=== PATIENT | male | born 1980 | race Caucasian/White ===

== ENCOUNTER 2018-06-06 09:11 | Inpatient (IN) ==
[2018-06-06] MEDS ORDERED: Isovue-370 500 ML INFUS..BTL IV ONE (11:48)
[2018-06-06 13:23] LABS: Basophils # 0.1 K/mcL (0.0-0.2); Basophils % 0.4 %; Eosinophils # 0.6 K/mcL (0.0-0.6); Eosinophils % 3.7 %; Hematocrit 42.5 % (37.5-50.1); Hemoglobin 14.2 g/dL (12.9-16.9); Immature Granulocytes % 0.4 % (0-4); Lymphocytes # 2.9 K/mcL (0.6-4.6); Lymphocytes % 16.9 %; Mean Corpuscular HGB Conc 33.4 g/dL (31.6-35.5); Mean Corpuscular Hemoglobin 31.2 pg (28.0-33.3); Mean Corpuscular Volume 93.4 fL (83.0-100.0); Monocytes # 2.4 K/mcL (0.0-1.3); Neutrophils # 11.2 K/mcL (1.6-8.9); Platelet Count 437 K/mcL (140-400); Red Blood Count 4.55 M/mcL (4.19-5.50); Segmented Neutrophils % 64.6 %
--- NOTE | 2018-06-06 13:37 | Emergency Department Note ---
Disposition Clinical Impression: Cellulitis, Abscess of face Disposition: Admitted As Inpatient Condition: Fair Time of Disposition: 15:56 General Adult HPI - General Chief complaint: ED Skin/Abscess/Foreign Body Stated complaint: Abscess right cheek going down throat Time Seen by Provider: 06/06/18 11:30 - History of Present Illness Pain Scale: 5 - Related Data Home Medications Medication Instructions Recorded Confirmed Diclofenac Sodium [Voltaren] 75 mg PO BID 06/06/18 06/06/18 Lisinopril-HCTZ 20-12.5 [Prinzide 1 tab PO DAILY 06/06/18 06/06/18 20-12.5] Metformin HCl [Glucophage] 1,000 mg PO BID 06/06/18 06/06/18 Allergies Allergy/AdvReac Type Severity Reaction Status Date / Time No Known Allergies Allergy Verified 06/04/18 09:39 Past Medical History - Past Medical History Medical history: Reports: hypertension Psychiatric history: Reports: no psych history - Social History Smoking Status: Never smoker Smokeless Tobacco Status: No Alcohol use: Reports: none Drug use: Reports: none Course Vital Signs Temperature 98.0 F 06/06/18 09:29 Pulse Rate 74 06/06/18 09:29 Respiratory Rate 18 06/06/18 09:29 Blood Pressure 143/81 06/06/18 09:29 O2 Sat by Pulse Oximetry 95 06/06/18 09:29 Temperature 98.0 F 06/06/18 09:29 Pulse Rate 74 06/06/18 09:29 Respiratory Rate 18 06/06/18 09:29 Blood Pressure 143/81 06/06/18 09:29 O2 Sat by Pulse Oximetry 95 06/06/18 09:29 Oxygen Delivery Oxygen Delivery Room Air Medical Decision Making - Lab Data Result diagrams: 06/06/18 13:08 06/06/18 13:08 Lab Results 06/06/18 06/06/18 Range/Units 13:08 13:08 WBC 17.3 H (4.3-11.1) K/mcL RBC 4.55 (4.19-5.50) M/mcL Hgb 14.2 (12.9-16.9) g/dL Hct 42.5 (37.5-50.1) % MCV 93.4 (83.0-100.0) fL MCH 31.2 (28.0-33.3) pg MCHC 33.4 (31.6-35.5) g/dL RDW 14.0 (11.5-14.5) % Plt Count 437 H (140-400) K/mcL MPV 10.0 (9.4-12.4) fL Immature Gran % 0.4 (0-4) % Seg Neutrophils % 64.6 % Lymphocytes % 16.9 % Monocytes % 14.0 % Eosinophils % 3.7 % Basophils % 0.4 % Neutrophils # 11.2 H (1.6-8.9) K/mcL Lymphocytes # 2.9 (0.6-4.6) K/mcL Monocytes # 2.4 H (0.0-1.3) K/mcL Eosinophils # 0.6 (0.0-0.6) K/mcL Basophils # 0.1 (0.0-0.2) K/mcL Sodium 138 (136-145) mEq/L Potassium 4.1 (3.5-5.1) mEq/L Chloride 105 (98-107) mEq/L Carbon Dioxide 28 (23-29) mEq/L BUN 15 (6-20) mg/dL Creatinine 0.78 (0.70-1.30) mg/dL Est GFR ( Amer) > 60 (> 60) Est GFR (Non-Af Amer) > 60 (> 60) BUN/Creatinine Ratio 19 (6-26) Glucose 79 (70-105) mg/dL Calculated Osmolality 286 (280-300) Calcium 9.3 (8.6-10.3) mg/dL Attestation Statement - Attestation Attestation: I, Steven Don DO, examined this patient [id number] and my medical decision-making was reviewed with Dr. Warren Patel, Resident Physician. I agree with the documented findings, disposition and treatment plan as described except to the extent set forth below. Please see my progress notes for details. 37-year-old male presents emergency room for evaluation of swelling and facial pain. Patient over the last week and a half has noticed redness swelling irritation to the zygomatic arch of the right side of his face. He is seated to outside facility started on antibiotics and then had an I&D completed of what appeared to be a subcutaneous abscess in the anterior aspect of the face. Since being treated and evaluated within incision and drainage as well as antibiotics the patient has had significant progression of the redness swelling irritation of the face. He now has swelling that goes up into the right eye in the preseptal distribution as well as swelling and goes into the cheek and on the anterior lateral aspect of the neck. Patient is alert he is orientedin full sentences. He has no pain with movement of the eye has no vision related abnormality or issue. He has no tenderness is superior inferior orbital ridges. His pupils are equal round reactive his extraocular muscles are intact. He has no signs of uvular deviation no posterior pharynx swelling no soft palate swelling. He has no stridor no trismus. He has full range of motion of the neck does have swelling to the right side of his face. He has no visible signs of Paulo's angina. He has no history of vascular related issue during about subclavian related etiology causing the swelling here today. The most likely nidus to the infection is the anterior skin related cellulitis and possible abscess. Because of the progression of the symptoms as well as a fair treatment in the outpatient setting the patient was CT with IV contrast of the maxillofacial as well as the neck. Also first dose of antibiotics and labs collected here in the emergency room. Patient will most every required admission wants a full workup and treatment course I been established considering this is an outpatient management of what appears to be a facial abscess with progression of cellulitis. Patient is comfortable this plan pain is well-controlled. See detailed documentation of the physical exam, medical intervention, medical decision-making and disposition in the resident physician' s note. No critical care provider the patient's treatment course at this time. [id number] scan does not show any extension of the cellulitis or infection into the anterior aspect of the neck or sublingual area of the mouth. Patient does not have any signs of deep space infection with imaging of the face. Concern is for superficial cellulitis over the facial aspect. This is in the area of high vascularization of the cerebral vessels. Patient has been on antibiotics with poor control of the spread of the redness and swelling. Patient will be admitted for continuation of care. He has an elevated white blood cell count. IV antibiotics have been ordered. The hospitalist Dr. Cummings reviewed the case and presentation no other concerns or issues. Patient otherwise clinically stable will be admitted for continuation of care of cellulitis that is filled outpatient treatment.
[2018-06-06 13:42] LABS: BUN/Creatinine Ratio 19 (6-26); Blood Urea Nitrogen 15 mg/dL (6-20); Calcium 9.3 mg/dL (8.6-10.3); Carbon Dioxide 28 mEq/L (23-29); Chloride 105 mEq/L (98-107); Glucose 79 mg/dL (70-105); Osmolality,Calculated 286 (280-300); Potassium 4.1 mEq/L (3.5-5.1); Sodium 138 mEq/L (136-145); eGFR For Non-African Americans > 60 (> 60)
[2018-06-06] MEDS ORDERED: Ibuprofen 400 MG TABLET PO ONE (15:52)
[2018-06-06] MEDS ORDERED: Acetaminophen 325 MG TABLET PO PRN (17:10)
[2018-06-06] MEDS ORDERED: Naloxone 0.4 MG/ML INJ IVP PRN (17:10)
[2018-06-06] MEDS ORDERED: D5% in Water 1,000 ML IVC PRN (17:16)
[2018-06-06] MEDS ORDERED: *HR* Dextrose 50 % in Water (Syg) 50 ML SYRINGE IVP PRN (17:16)
[2018-06-06] MEDS ORDERED: Dextrose Gel 15 GM/37.5 ML TUBE PO PRN ×2 (17:16)
--- NOTE | 2018-06-06 17:28 | Internal Med History&Physical ---
<PerezCesar - Last Filed: 06/06/18 17:57> Date of Encounter: 06/06/18 Time of Encounter: 16:30 Internal Medicine - H&P: HPI Chief complaint: Sore on right cheek Admitted From: Emergency Dept Plans for Post Hospital Care: Home History of present illness: Mr. Lundberg is a 37 year old male w/PMH of HTN and DM presents from the the ED w/CC of painful sore on the right cheek that began Wednesday afternoon and pt. thought was a pimple. Attempted to squeeze. 2 a.m. Wednesday pt. woke up an deye was swollen shut. Went to Urgent Care on Wednesday and placed on PO abx. Wednesday 4 a.m. pt. had right ear and jaw pain. Went to [facility] and cheek was lanced, drained, and packed. Today, pts. throat and neck began to hurt. Came to [facility] ED. States this has never happened before. Denies drug use. States eye is better and can open it now but neck, jaw, and throat have not improved. Reports fever of 101F last night. No alleviating or aggravating factors. Pt. reports headache, body aches, and weakness but denies recent illness, chills, nausea, vomiting, changes in vision, CP, SOB, unusual bleeding, cough, chest congestion , abdominal pain, diarrhea, constipation, dizziness, lightheadedness, numbness, tingling, pre-syncope, or syncope. Past Med Surg Social Fam HX - Past Medical History Source: patient, old records reviewed Medical history: diabetes, hypertension Psychiatric history: no psych history - Past Surgical History Additional surgical history: spleenectomy. t&A - Social History Smoking Status: Never smoker Smokeless Tobacco Status: No Alcohol use: none Drug use: none Current living situation: Home, With Family Activity Level: Independent ambulation Recent Out of Country Travel Within the Last 8 Weeks: No Exposure or Possible Exposure to Illness During Travel: No - Family History Father Race: Family Member Ethnicity: Non- Living Status: Still Living Hx Family Cardiac Disorders: Yes (NE, HD) Hx Family Endocrine Disorder: Yes (DM) Mother Race: Family Member Ethnicity: Non- Living Status: Still Living Hx Family Medical Disorders: No Brother Race: Family Member Ethnicity: Non- Living Status: Still Living Hx Family Medical Disorders: No Internal Medicine - H&P: Meds Diclofenac Sodium [Voltaren] 75 mg PO BID 06/06/18 [History] Lisinopril-HCTZ 20-12.5 [Prinzide 20-12.5] 1 tab PO DAILY 06/06/18 [History] Metformin HCl [Glucophage] 1,000 mg PO BID 06/06/18 [History] 3 Allergy/AdvReac Type Severity Reaction Status Date / Time No Known Allergies Allergy Verified 06/04/18 09:39 All Systems PM: A 10-system review of systems was performed and is negative for pertinent findings except as documented above in the HPI. - Constitutional Constitutional: no chills, no fever(s), no night sweats - EENT Eyes: as per HPI, pain (Right eye), no change in vision, no discharge, no photophobia Ears: no ear discharge, no ear pain, no tinnitus Nose, mouth and throat: as per HPI, facial pain (Right cheek), neck pain, no dysphagia, no nasal discharge, no sore throat - Breasts Breasts: as per HPI - Cardiovascular Cardiovascular ROS IM: no chest pain, no diaphoresis, no dyspnea, no lightheadedness, no palpitations, no syncope - Respiratory Respiratory: no cough, no dyspnea, no wheezing, no excessive phlegm production - Gastrointestinal Gastrointestinal: no abdominal pain, no diarrhea, no hematemesis, no hematochezia, no melena, no nausea, no vomiting - Genitourinary Genitourinary ROS male: as per HPI - Musculoskeletal Musculoskeletal ROS IM: no numbness, no tingling - Integumentary Integumentary IM: as per HPI, erythema (Right cheek), sores (Right cheek), no rash, no unusual bruising - Neurological Neurological ROS: no confusion, no convulsions, no focal weakness, no numbness, no tingling, no tremor(s) - Psychiatric Psychiatric: as per HPI - Endocrine Endocrine IM: as per HPI - Hematologic/Lymphatic Hematologic/Lymphatic: no easy bruising - Allergic/Immunologic Allergic/Immunologic: as per HPI - Constitutional Vitals: Temp Pulse Resp BP Pulse Ox 98.0 F 74 14 132/66 95 06/06/18 16:54 06/06/18 16:54 06/06/18 16:54 06/06/18 16:54 06/06/18 16:54 General appearance: Present: cooperative, mild distress (Pain in right cheek, neck, and throat), A&O X 3, pleasant, obese, answers questions appropriately Exam: Pt. examined at bedside in ED. Pt. states he has pain in right cheek, right neck , right jaw, and throat. Sore on right cheek began Wednesday and has worsened after abx therapy. Denies previous sx or drug use. States he had fever of 101F last night, weakness, and body aches. Denies other sx or complaints at this time. VS: 98.0F temp, HR 74, RR 14, BP 132/66, SpO2 95% on RA. Plan of care for IV abx and monitoring for sepsis discussed w/pt. who expressed understanding and agreement. - Head Head exam: Present: atraumatic, normocephalic - Eye Eye exam: Present: PERRL, conjuntiva pink, sclera anicteric Pupils: Present: PERRL - ENT ENT exam: Present: normal exam - Neck Neck exam general surgery: Present: normal inspection, supple, trachea midline. Absent: lymphadenopathy - Respiratory Respiratory exam: Present: CTAB. Absent: accessory muscle use, rales, rhonchi, wheezes - Cardiovascular Cardiovascular exam: Present: RRR, +S1, +S2. Absent: diastolic murmur, gallop, rubs, systolic murmur - GI/Abdominal GI/Abdominal exam: Present: normal bowel sounds, soft, no peritoneal signs. Absent: distended, tenderness - Rectal Rectal exam: Present: deferred - Additional comments: exam deferred. - Extremities Exam Extremities exam: Present: warm, radial pulses palpable and symmetrical. Absent : calf tenderness, cyanotic, pedal edema - Back Exam Back exam: Present: normal inspection - Neurological Exam Neurological exam: Present: alert, CN II-XII intact, oriented X3, no focal deficits. Absent: pronater drift, facial droop, speech deficit - Psychiatric Psychiatric exam: Present: normal affect, normal mood - Skin Skin exam: Present: dry, erythema (Right cheek), intact Internal Med - H&P Results - Labs CBC & Chem 7: 06/06/18 13:06/06/18 13:08 - Diagnostic Studies Other Images Additional comments: Impressions Soft Tissue Neck CT 06/06/18 11:48 IMPRESSION: Right facial inflammation without abscess. Possible enlarged parathyroid gland versus reactive lymph node. RECOMMENDATIONS: Correlate with serum calcium for any evidence of hyperparathyroidism. D/ / 06/06/2018 14:58:50 Cheng Hendricks MD / Ashwini Martinez Interpreting Provider: Cheng Hendricks MD - Assessment and plan (1) Cellulitis Current Visit: Yes Status: Acute Assessment and plan: Acute cellulitis of the right cheek. Pt. denies previous sx. States sx began Wednesday afternoon and he was seen at [facility] and [facility] w/o resolve. Radiation of pain and sx to right neck, right jaw, and throat. CT of the soft neck tissue today shows right facial inflammation without abscess. Possible enlarged parathyroid gland versus reactive lymph node. Correlate with serum calcium for any evidence of hyperparathyroidism. Patient's calcium 9.3 on admission. IVPB vancomycin w/Pharmacy dosing and IVPB Zosyn 3.375 gm for infection coverage. Blood cultures x2. Wound culture. Lactic acid ordered. Will adjust abx based on culture results. 0.9 NS IV fluids @ 75 mLs/HR. Will monitor pt. and labs closely for signs of increasing infection or sepsis. Stair -step pain medications for pain management. Pt. does not currently meet sepsis criteria w/WBC of 17.3, 98.0F temp, HR 74, RR 14, BP 132/66, SpO2 95% on RA. Lactic acid ordered. Pt. and f/u labs to be monitored closely for signs of sepsis. Pt. discussed w/Dr. Cummings who agrees w/plan of care. Pt. is high risk for further morbidity and infection based on current sx, failed OP therapy , WBC of 17.3; cellulitis that has spread from cheek to neck/jaw/throat; and risk factors of DM/HTN. Inpatient. Qualifiers: Site of cellulitis: face Qualified Code(s): L03.211 - Cellulitis of face (2) Leukocytosis Current Visit: Yes Status: Acute Assessment and plan: Acute leukocytosis w/WBC of 17.3 on admission. Pt. states he feels like he has the flu w/body aches and weakness. Pt. placed on IVPB vancomycin in ED. Will continue vancomycin w/Pharmacy dosing and add IVPB Zosyn 3.375 gm Q8HR for infection coverage. Blood cultures x2. Wound culture. Respiratory infection panel ordered. Will adjust abx coverage based on culture results. Monitor pt. and f/u labs for signs of increasing infection or sepsis. Qualifiers: Leukocytosis type: unspecified Qualified Code(s): D72.829 - Elevated white blood cell count, unspecified (3) Pain in face Current Visit: Yes Status: Acute Assessment and plan: Acute pain in face (right cheek) w/radiation to right neck, jaw, and throat. Stair-step pain medications for pain mgmt. (4) HTN (hypertension) Current Visit: Yes Status: Chronic Assessment and plan: Hx of HTN. Monitor pt. and VS. Continue pts. Lisinopril. IVP hydralazine 10 mg Q6HR PRN w/parameters ordered. Qualifiers: Hypertension type: essential hypertension Qualified Code(s): I10 - Essential (primary) hypertension (5) Diabetes Current Visit: Yes Status: Chronic Assessment and plan: Hx of diabetes controlled by Metformin. Hold Metformin and administer low dose correction sliding scale insulin w/hypoglycemic protocol. BG checks ACHS. A1c in a.m. labs. ADA diet. 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 Monitor pt. for signs of bleeding. - Time Spent With Patient Total time spent is greater than 50% in coordination of care (as documented) at patient's floor/unit and/or counseling patient: Greater than 35 minutes <Leroy Cummings - Last Filed: 06/07/18 13:52> Date of Encounter: 06/07/18 Internal Medicine - H&P: HPI History of present illness: Mr. Lundberg is a 37 year old male All Systems PM: A 10-system review of systems was performed and is negative for pertinent findings except as documented above in the HPI. - Constitutional Vitals: Temp Pulse Resp BP Pulse Ox 97.3 F L 67 16 147/72 94 06/07/18 10:48 06/07/18 10:48 06/07/18 10:48 06/07/18 10:48 06/07/18 10:48 Internal Med - H&P Results - Labs CBC & Chem 7: 06/07/18 04:52 06/07/18 04:52 Labs: Short CBC 06/07/18 Range/Units 04:52 WBC 14.9 H (4.3-11.1) K/mcL Hgb 13.0 (12.9-16.9) g/dL Hct 39.5 (37.5-50.1) % Plt Count 455 H (140-400) K/mcL Neutrophils # 9.3 H (1.6-8.9) K/mcL BMP 06/07/18 04:52 Sodium 135 L Potassium 3.8 Chloride 105 Carbon Dioxide 24 BUN 15 Creatinine 0.73 Glucose 226 H Calcium 8.6 Liver Function 06/07/18 Range/Units 04:52 Total Bilirubin 0.3 (0.3-1.0) mg/dL AST 13 (13-39) Units/L ALT 25 (7-52) Units/L Alkaline Phosphatase 47 (34-104) Units/L Albumin 3.5 (3.5-5.7) g/dL - Assessment and plan (1) Cellulitis Current Visit: Yes Status: Acute Qualifiers: Site of cellulitis: face Qualified Code(s): L03.211 - Cellulitis of face (2) Pain in face Current Visit: Yes Status: Acute (3) Leukocytosis Current Visit: Yes Status: Acute Qualifiers: Leukocytosis type: unspecified Qualified Code(s): D72.829 - Elevated white blood cell count, unspecified (4) HTN (hypertension) Current Visit: Yes Status: Chronic Qualifiers: Hypertension type: essential hypertension Qualified Code(s): I10 - Essential (primary) hypertension (5) Diabetes Current Visit: Yes Status: Chronic Qualifiers: Diabetes mellitus type: type 2 Diabetes mellitus 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 continue management for face cellulitis. Agree with plan per LICENSED CLINICAL PSYCHOLOGIST
--- NOTE | 2018-06-06 17:45 | Emergency Department Note ---
Disposition Clinical Impression: Cellulitis Qualifiers: Site of cellulitis: face Qualified Code(s): L03.211 - Cellulitis of face Disposition: Admitted As Inpatient Condition: Fair Time of Disposition: 17:47 General Adult HPI - General Chief complaint: ED Skin/Abscess/Foreign Body Stated complaint: Abscess right cheek going down throat Time Seen by Provider: 06/06/18 11:30 Source: patient Mode of arrival: ambulatory Limitations: no limitations Nursing Notes Reviewed: Yes Vital Signs Reviewed: Yes - History of Present Illness HPI Narrative: Patient is a 37-year-old male with no pertinent past medical history [facility] for evaluation of 3 days worsening skin infection below his right eye. The patient states his symptoms started 3 days ago as a small pimple that he attempted to squeeze the next day he woke up and he had increasing swelling and redness under his right eye. 2 days ago he was seen at urgent care for this problem and given a prescription for clindamycin and Keflex. Patient's symptoms continue to worsen is complaining of chills and night sweats is seen yesterday at a emergency department in which she underwent an incision and drainage with a small amount of purulent drainage according to the patient. States he is continuing currently on day 2 of antibiotics and is concerned because his eyelid now has swelling. Pain Scale: 3 - Related Data Home Medications Medication Instructions Recorded Confirmed Diclofenac Sodium [Voltaren] 75 mg PO BID 06/06/18 06/06/18 Lisinopril-HCTZ 20-12.5 [Prinzide 1 tab PO DAILY 06/06/18 06/06/18 20-12.5] Metformin HCl [Glucophage] 1,000 mg PO BID 06/06/18 06/06/18 Allergies Allergy/AdvReac Type Severity Reaction Status Date / Time No Known Allergies Allergy Verified 06/04/18 09:39 All systems ED: reviewed and negative except as stated. Review of Systems: As Per HPI Constitutional: Reports: chills. Denies: fever Gastrointestinal: Denies: nausea, vomiting Integumentary: Reports: rash Past Medical History - Past Medical History Attestation: Yes The following information was validated with the patient. Medical history: Reports: diabetes, hypertension Psychiatric history: Reports: no psych history - Social History Smoking Status: Never smoker Smokeless Tobacco Status: No Alcohol use: Reports: none Drug use: Reports: none Physical Exam CONSTITUTIONAL: Alert and oriented X3, well-nourished, well appearing, in no apparent distress HEAD: Normocephalic; atraumatic. EYES: PERRL, no scleral icterus. NOSE: The nose is normal in appearance without rhinorrhea RESP: Normal chest excursion with respiration; breath sounds clear and equal bilaterally; no wheezes, rhonchi, or rales CARD: Regular rhythm, without murmurs, rub or gallop ABD: Non-distended; non-tender, soft,without rigidity, rebound or guarding SKIN: Small area of erythema under the right eye with induration that is approx 4x5cm. Small area of scabbing over the center. Eyelid is also swollen both upper and lower. No involvment - General Limitations: no limitations General appearance: alert Course Course Narrative: Patient underwent CT imaging with IV contrast of the soft tissue of his neck and lower face and revealed that there is no abscess present. Attending spoke with the interpreting radiologist and he stated that there is no concern at this time for preseptal cellulitis. Plan at this time is to admit the patient to hospital for IV antibiotics given that he has been seen now for the third time for this and is concerned that he is failing outpatient treatment. Patient was started on vancomycin and cultures were obtained. There is also recommended that we evaluate the patient's calcium level given concern for possible nodule of the parathyroid gland. His calcium level on basic labs was normal. I added on a individual calcium level as well as an ionized calcium. Discussed with Dr. Cummings and he accepts. Vital Signs Temperature 98.0 F 06/06/18 09:29 Pulse Rate 74 06/06/18 09:29 Respiratory Rate 18 06/06/18 09:29 Blood Pressure 143/81 06/06/18 09:29 O2 Sat by Pulse Oximetry 95 06/06/18 09:29 Temperature 98.1 F 06/06/18 17:31 Pulse Rate 63 06/06/18 17:31 Respiratory Rate 18 06/06/18 17:31 Blood Pressure 152/79 06/06/18 17:31 O2 Sat by Pulse Oximetry 95 06/06/18 17:31 Oxygen Delivery Oxygen Delivery Room Air Medical Decision Making - Medical Records Medical records reviewed: Yes I reviewed the patient's medical records. - Lab Data Lab results reviewed: Yes I reviewed the patient's lab results. Result diagrams: 06/06/18 13:08 06/06/18 13:08 Lab Results 06/06/18 06/06/18 Range/Units 13:08 13:08 WBC 17.3 H (4.3-11.1) K/mcL RBC 4.55 (4.19-5.50) M/mcL Hgb 14.2 (12.9-16.9) g/dL Hct 42.5 (37.5-50.1) % MCV 93.4 (83.0-100.0) fL MCH 31.2 (28.0-33.3) pg MCHC 33.4 (31.6-35.5) g/dL RDW 14.0 (11.5-14.5) % Plt Count 437 H (140-400) K/mcL MPV 10.0 (9.4-12.4) fL Immature Gran % 0.4 (0-4) % Seg Neutrophils % 64.6 % Lymphocytes % 16.9 % Monocytes % 14.0 % Eosinophils % 3.7 % Basophils % 0.4 % Neutrophils # 11.2 H (1.6-8.9) K/mcL Lymphocytes # 2.9 (0.6-4.6) K/mcL Monocytes # 2.4 H (0.0-1.3) K/mcL Eosinophils # 0.6 (0.0-0.6) K/mcL Basophils # 0.1 (0.0-0.2) K/mcL Sodium 138 (136-145) mEq/L Potassium 4.1 (3.5-5.1) mEq/L Chloride 105 (98-107) mEq/L Carbon Dioxide 28 (23-29) mEq/L BUN 15 (6-20) mg/dL Creatinine 0.78 (0.70-1.30) mg/dL Est GFR ( Amer) > 60 (> 60) Est GFR (Non-Af Amer) > 60 (> 60) BUN/Creatinine Ratio 19 (6-26) Glucose 79 (70-105) mg/dL Calculated Osmolality 286 (280-300) Calcium 9.3 (8.6-10.3) mg/dL - Radiology Data Radiology results reviewed: Yes I reviewed the patient's radiology results. Soft Tissue Neck CT 06/06/18 11:48 IMPRESSION: Right facial inflammation without abscess. Possible enlarged parathyroid gland versus reactive lymph node. RECOMMENDATIONS: Correlate with serum calcium for any evidence of hyperparathyroidism. D/ 06/06/2018 14:58:50 Cheng Hendricks MD / Ashwini Martinez Interpreting Provider: Cheng Hendricks MD Attestation Statement - Attestation Attestation: I, Steven Don DO, examined this patient [id number] and my medical decision-making was reviewed with Dr. Warren Patel, Resident Physician. I agree with the documented findings, disposition and treatment plan as described except to the extent set forth below. Please see my progress notes for details.
[2018-06-06] MEDS: Piperacillin/Tazobactam 3.375 GM in 0.9 % Sodium Chloride Mini Bag 100 ML IVPB SCH (18:11)
[2018-06-06] MEDS: 0.9 % Sodium Chloride 1,000 ML IVC SCH (18:12)
[2018-06-06] MEDS: traMADol 50 MG TABLET PO PRN (20:59)
[2018-06-06] MEDS: Insulin LISPRO 300 UNITS/3 ML VIAL SQ SCH (21:07)
[2018-06-06] MEDS: Diclofenac Sodium 75 MG TABLET PO SCH (23:56)
[2018-06-07] MEDS: Piperacillin/Tazobactam 3.375 GM in 0.9 % Sodium Chloride Mini Bag 100 ML IVPB SCH ×3 (02:26→18:14)
[2018-06-07 05:14] LABS: Basophils # 0.1 K/mcL (0.0-0.2); Basophils % 0.6 %; Eosinophils # 0.9 K/mcL (0.0-0.6); Eosinophils % 6.1 %; Hematocrit 39.5 % (37.5-50.1); Immature Granulocytes % 0.5 % (0-4); Lymphocytes # 2.6 K/mcL (0.6-4.6); Lymphocytes % 17.3 %; Mean Corpuscular HGB Conc 32.9 g/dL (31.6-35.5); Mean Corpuscular Hemoglobin 30.1 pg (28.0-33.3); Mean Corpuscular Volume 91.4 fL (83.0-100.0); Monocytes % 13.1 %; Neutrophils # 9.3 K/mcL (1.6-8.9); Platelet Count 455 K/mcL (140-400); Red Blood Count 4.32 M/mcL (4.19-5.50); Red Cell Distribution Width 13.7 % (11.5-14.5); Segmented Neutrophils % 62.4 %
[2018-06-07 05:33] LABS: Alanine Aminotransferase 25 Units/L (7-52); Albumin 3.5 g/dL (3.5-5.7); Albumin/Globulin Ratio 1.3 (1.1-2.2); Alkaline Phosphatase 47 Units/L (34-104); Aspartate Amino Transferase 13 Units/L (13-39); BUN/Creatinine Ratio 21 (6-26); Bilirubin,Total 0.3 mg/dL (0.3-1.0); Blood Urea Nitrogen 15 mg/dL (6-20); Calcium 8.6 mg/dL (8.6-10.3); Carbon Dioxide 24 mEq/L (23-29); Chloride 105 mEq/L (98-107); Chol/HDL Ratio 3.4 (0-4.9); Cholesterol 114 mg/dL (< 200); Globulin 2.7 g/dL (2.4-3.5); Glucose 226 mg/dL (70-105); HDL Cholesterol 34 mg/dL (40-59); LDL Cholesterol,Calculated 68 mg/dL (0-99); Magnesium 1.7 mg/dL (1.6-2.6); Osmolality,Calculated 288 (280-300); Potassium 3.8 mEq/L (3.5-5.1); Sodium 135 mEq/L (136-145); Total Protein 6.2 g/dL (6.4-8.9); Triglycerides 59 mg/dL (< 150); eGFR For Non-African Americans > 60 (> 60)
[2018-06-07] MEDS: *HR* Enoxaparin 40 MG/0.4 ML SYRINGE SQ SCH (05:34)
[2018-06-07] MEDS: traMADol 50 MG TABLET PO PRN (05:35)
[2018-06-07 07:08] LABS: Estimated Average Glucose 140 mg/dl; Hemoglobin A1C 6.5 %
[2018-06-07] MEDS: Insulin LISPRO 300 UNITS/3 ML VIAL SQ SCH ×4 (10:00→21:05)
[2018-06-07] MEDS: Diclofenac Sodium 75 MG TABLET PO SCH ×2 (10:01→21:06)
[2018-06-07] MEDS: *HR* HYDROcodone/Acet 10/325 mg TABLET PO PRN ×2 (10:01→18:14)
[2018-06-07] MEDS: Lisinopril-HCTZ 20-12.5mg TABLET PO SCH (10:01)
[2018-06-07] MEDS: 0.9 % Sodium Chloride 1,000 ML IVC SCH ×3 (10:02→21:13)
[2018-06-07] MEDS ORDERED: Tetrahydrozoline 15 ML BOTTLE RIGHT EYE PRN (10:38)
--- NOTE | 2018-06-07 14:42 | Internal Med Progress Note ---
Hospitalist Progress Note - Encounter Date of Encounter: 06/07/18 Time of Encounter: 14:42 - Subjective Interval History: patient seen and examined at bedside today, right orbital swelling continuing to decrease. He is reporting serous drainage from incision site. Denies any fevers, chills, flulike symptoms. - Exam Vitals: Temp Pulse Resp BP Pulse Ox 97.3 F L 67 16 147/72 94 06/07/18 10:48 06/07/18 10:48 06/07/18 10:48 06/07/18 10:48 06/07/18 10:48 Exam: PHYSICAL EXAMINATION: GENERAL: The patient is a well-developed, well-nourished male in no apparent distress. He is alert and oriented x3. HEENT: Head is normocephalic and atraumatic. Extraocular muscles are intact. Pupils are equal, round, and reactive to light and accommodation. NECK: Supple. No carotid bruits. No lymphadenopathy or thyromegaly. LUNGS: Clear to auscultation. HEART: Regular rate and rhythm without murmur. ABDOMEN: Soft, nontender, and nondistended. Positive bowel sounds. No hepatosplenomegaly was noted. EXTREMITIES: Without any cyanosis, clubbing, rash, lesions or edema. NEUROLOGIC: Cranial nerves II through XII are grossly intact. PSYCHIATRIC: Flat affect, but denies suicidal or homicidal ideations. SKIN: No ulceration or induration present. - Assessment and Plan (1) Cellulitis Current Visit: Yes Status: Acute Assessment and Plan: Acute cellulitis of the right cheek. Pt. denies previous sx. States sx began Wednesday afternoon and he was seen at Urgent Care and [facility] w/o resolve. Radiation of pain and sx to right neck, right jaw, and throat. CT of the soft neck tissue today shows right facial inflammation without abscess. Possible enlarged parathyroid gland versus reactive lymph node. Correlate with serum calcium for any evidence of hyperparathyroidism. Patient's calcium 9.3 on admission. IVPB vancomycin w/Pharmacy dosing and IVPB Zosyn 3.375 gm for infection coverage. Blood cultures x2. Wound culture. Lactic acid ordered. Will adjust abx based on culture results. 0.9 NS IV fluids @ 75 mLs/HR. Will monitor pt. and labs closely for signs of increasing infection or sepsis. Stair -step pain medications for pain management. Pt. does not currently meet sepsis criteria w/WBC of 17.3, 98.0F temp, HR 74, RR 14, BP 132/66, SpO2 95% on RA. Lactic acid ordered. Pt. and f/u labs to be monitored closely for signs of sepsis. Pt. discussed w/Dr. Cummings who agrees w/plan of care. Pt. is high risk for further morbidity and infection based on current sx, failed OP therapy , WBC of 17.3; cellulitis that has spread from cheek to neck/jaw/throat; and risk factors of DM/HTN. Inpatient. 06/07-right orbital cellulitis improving. Decreased swelling overnight. Continue to have clear serous drainage. Blood cultures pending, wound cultures pending. WBC decreasing, 14.9 today. Continue vancomycin and Zosyn, narrow as appropriate based on culture results. Patient remains hemodynamically stable and afebrile. (2) Pain in face Current Visit: Yes Status: Acute Assessment and Plan: Acute pain in face (right cheek) w/radiation to right neck, jaw, and throat secondary to right orbital cellulitis. Continue [place] for pain management and supportive care (3) Leukocytosis Current Visit: Yes Status: Acute Assessment and Plan: As above (4) HTN (hypertension) Current Visit: Yes Status: Chronic Assessment and Plan: Per history Stable, continue anti-HTN medication regimen Increase dose as necessary (5) Diabetes Current Visit: Yes Status: Chronic Assessment and Plan: Per history Stable, continue current sliding scale insulin coverage (6) DVT prophylaxis Current Visit: Yes Status: Acute Assessment and Plan: continue SC heparin - Time Spent with Patient Total time spent is greater than 50% in coordination of care (as documented) at patient's floor/unit and/or counseling patient: less than 15 minutes Plan of Care Discussed with: patient Internal Medicine: Result - Labs CBC & Chem 7: 06/07/18 04:52 06/07/18 04:52 Labs: Short CBC 06/07/18 Range/Units 04:52 WBC 14.9 H (4.3-11.1) K/mcL Hgb 13.0 (12.9-16.9) g/dL Hct 39.5 (37.5-50.1) % Plt Count 455 H (140-400) K/mcL Neutrophils # 9.3 H (1.6-8.9) K/mcL BMP 06/07/18 04:52 Sodium 135 L Potassium 3.8 Chloride 105 Carbon Dioxide 24 BUN 15 Creatinine 0.73 Glucose 226 H Calcium 8.6 Liver Function 06/07/18 Range/Units 04:52 Total Bilirubin 0.3 (0.3-1.0) mg/dL AST 13 (13-39) Units/L ALT 25 (7-52) Units/L Alkaline Phosphatase 47 (34-104) Units/L Albumin 3.5 (3.5-5.7) g/dL Consult Discharge Plan - Plan Referrals: Tomasa Lozada, BAKE ROOM WORKER [Primary Care Provider] - 06/15/18 4:00 pm (1) Cellulitis Qualifiers: Site of cellulitis: face Qualified Code(s): L03.211 - Cellulitis of face (3) Leukocytosis Qualifiers: Leukocytosis type: unspecified Qualified Code(s): D72.829 - Elevated white blood cell count, unspecified (4) HTN (hypertension) Qualifiers: Hypertension type: essential hypertension Qualified Code(s): I10 - Essential (primary) hypertension (5) Diabetes Qualifiers: Diabetes mellitus type: type 2 Diabetes mellitus senior care insulin use: without senior care use Diabetes mellitus complication status: with unspecified complications Qualified Code(s): E11.8 - Type 2 diabetes mellitus with unspecified complications
[2018-06-08] MEDS: Piperacillin/Tazobactam 3.375 GM in 0.9 % Sodium Chloride Mini Bag 100 ML IVPB SCH ×3 (02:09→17:11)
[2018-06-08 03:23] LABS: Adenovirus Not Detected (Not Detect); Bordetella Pertussis Not Detected (Not Detect); Chlamydophila pneumoniae Not Detected (Not Detect); Coronavirus 229E Not Detected (Not Detect); Coronavirus HKU1 Not Detected (Not Detect); Coronavirus NL63 Not Detected (Not Detect); Coronavirus OC43 Not Detected (Not Detect); Human Metapneumovirus Not Detected (Not Detect); Human Rhinovirus/Enterovirus Not Detected (Not Detect); Influenza A Subtype 2009 H1 Not Detected (Not Detect); Influenza A Untypeable Not Detected (Not Detect); Influenza B Not Detected (Not Detect); Mycoplasma pneumoniae Not Detected (Not Detect); Parainfluenza Virus 1 Not Detected (Not Detect); Parainfluenza Virus 2 Not Detected (Not Detect); Parainfluenza Virus 3 Not Detected (Not Detect); Parainfluenza Virus 4 Not Detected (Not Detect); Respiratory Syncytial Virus Not Detected (Not Detect)
[2018-06-08 03:54] LABS: Basophils % 0.7 %; Eosinophils # 0.9 K/mcL (0.0-0.6); Eosinophils % 7.6 %; Hematocrit 40.6 % (37.5-50.1); Hemoglobin 13.3 g/dL (12.9-16.9); Immature Granulocytes % 0.3 % (0-4); Lymphocytes # 2.2 K/mcL (0.6-4.6); Lymphocytes % 19.6 %; Mean Corpuscular HGB Conc 32.8 g/dL (31.6-35.5); Mean Corpuscular Hemoglobin 29.8 pg (28.0-33.3); Mean Platelet Volume 9.9 fL (9.4-12.4); Monocytes # 1.4 K/mcL (0.0-1.3); Monocytes % 12.6 %; Neutrophils # 6.7 K/mcL (1.6-8.9); Platelet Count 535 K/mcL (140-400); Red Blood Count 4.46 M/mcL (4.19-5.50); Red Cell Distribution Width 13.7 % (11.5-14.5); Segmented Neutrophils % 59.2 %
[2018-06-08 03:55] LABS: Basophils # 0.1 K/mcL (0.0-0.2)
[2018-06-08 04:19] LABS: BUN/Creatinine Ratio 18 (6-26); Blood Urea Nitrogen 14 mg/dL (6-20); Calcium 8.9 mg/dL (8.6-10.3); Carbon Dioxide 25 mEq/L (23-29); Chloride 104 mEq/L (98-107); Chol/HDL Ratio 4.1 (0-4.9); Glucose 140 mg/dL (70-105); Osmolality,Calculated 287 (280-300); Sodium 137 mEq/L (136-145); eGFR For Non-African Americans > 60 (> 60)
[2018-06-08] MEDS: *HR* Enoxaparin 40 MG/0.4 ML SYRINGE SQ SCH (05:47)
[2018-06-08] MEDS: 0.9 % Sodium Chloride 1,000 ML IVC SCH (06:32)
[2018-06-08] MEDS: Insulin LISPRO 300 UNITS/3 ML VIAL SQ SCH ×4 (08:07→21:46)
[2018-06-08] MEDS: Lisinopril-HCTZ 20-12.5mg TABLET PO SCH (09:18)
[2018-06-08] MEDS: Diclofenac Sodium 75 MG TABLET PO SCH ×2 (09:18→20:39)
--- NOTE | 2018-06-08 10:35 | Internal Med Progress Note ---
Hospitalist Progress Note - Encounter Date of Encounter: 06/08/18 Time of Encounter: 10:33 - Subjective Interval History: patient seen and examined at bedside today, right orbital swelling further decreasing overnight. Drainage decreasing overnight. Denies any fevers, chills , flulike symptoms. - Exam Vitals: Temp Pulse Resp BP Pulse Ox 97.9 F 57 20 127/66 94 06/08/18 07:56 06/08/18 07:56 06/08/18 07:56 06/08/18 07:56 06/08/18 07:56 Exam: PHYSICAL EXAMINATION: GENERAL: The patient is a well-developed, well-nourished male in no apparent distress. He is alert and oriented x3. HEENT: Head is normocephalic and atraumatic. Extraocular muscles are intact. Pupils are equal, round, and reactive to light and accommodation. NECK: Supple. No carotid bruits. No lymphadenopathy or thyromegaly. LUNGS: Clear to auscultation. HEART: Regular rate and rhythm, S1, S2 without murmur. ABDOMEN: Soft, nontender, and nondistended. Positive bowel sounds. No hepatosplenomegaly was noted. EXTREMITIES: Without any cyanosis, clubbing, rash, lesions or edema. NEUROLOGIC: Cranial nerves II through XII are grossly intact. PSYCHIATRIC: Flat affect, but denies suicidal or homicidal ideations. SKIN: Right orbital cellulitis, without fluctuation or induration. Old incision site s/p I&D with a minimal amount of clear serous drainage, swelling decreasing overnight - Assessment and Plan (1) Cellulitis Current Visit: Yes Status: Acute (2) Pain in face Current Visit: Yes Status: Acute (3) Leukocytosis Current Visit: Yes Status: Acute (4) HTN (hypertension) Current Visit: Yes Status: Chronic (5) Diabetes Current Visit: Yes Status: Chronic (6) DVT prophylaxis Current Visit: Yes Status: Acute - Summary of Assessment and Plan Summary of Assessment and Plan: Acute cellulitis of the right cheek. Pt. denies previous sx. States sx began Wednesday afternoon and he was seen at Urgent Care and [facility] w/o resolve. Radiation of pain and sx to right neck, right jaw, and throat. CT of the soft neck tissue today shows right facial inflammation without abscess. Possible enlarged parathyroid gland versus reactive lymph node. Correlate with serum calcium for any evidence of hyperparathyroidism. Patient's calcium 9.3 on admission. IVPB vancomycin w/Pharmacy dosing and IVPB Zosyn 3.375 gm for infection coverage. Blood cultures x2. Wound culture. Lactic acid ordered. Will adjust abx based on culture results. 0.9 NS IV fluids @ 75 mLs/HR. Will monitor pt. and labs closely for signs of increasing infection or sepsis. Stair -step pain medications for pain management. Pt. does not currently meet sepsis criteria w/WBC of 17.3, 98.0F temp, HR 74, RR 14, BP 132/66, SpO2 95% on RA. Lactic acid ordered. Pt. and f/u labs to be monitored closely for signs of sepsis. Pt. discussed w/Dr. Cummings who agrees w/plan of care. Pt. is high risk for further morbidity and infection based on current sx, failed OP therapy , WBC of 17.3; cellulitis that has spread from cheek to neck/jaw/throat; and risk factors of DM/HTN. Inpatient. 06/08-clinically, patient continuing to improve overnight. Drainage from right orbital cellulitis has decreased. Blood cultures negative 48 hours. Preliminary, continue to follow. Wound cultures with GPC, treat as stated below. DIAGNOSIS: 2-szpypjnyvz-gqtek orbital cellulitis on admission. Wound cultures reveal GPC, sensitivities pending. Has remained afebrile and hemodynamically stable. He is nontoxic appearing. The PBC improving 11.4 today. Continue vancomycin and Zosyn. Monitor daily labs. 2-facial pain-as above 0-Yjzrgzvqpucf-yfsqwngcs, WBC on admission 17.3, today 11.4. Secondary to right orbital cellulitis, continue antibiotics, daily labs 4-HTN-per history, remained stable, continue anti-HTN medications 5-DM-per history, continue sliding scale coverage 6-DVT prophylaxis-continue SC heparin - Time Spent with Patient Total time spent is greater than 50% in coordination of care (as documented) at patient's floor/unit and/or counseling patient: less than 15 minutes Plan of Care Discussed with: patient Internal Medicine: Result - Labs CBC & Chem 7: 06/08/18 03:28 06/08/18 03:28 Labs: Short CBC 06/08/18 Range/Units 03:28 WBC 11.4 H (4.3-11.1) K/mcL Hgb 13.3 (12.9-16.9) g/dL Hct 40.6 (37.5-50.1) % Plt Count 535 H (140-400) K/mcL Neutrophils # 6.7 (1.6-8.9) K/mcL [facility] 06/08/18 03:28 Sodium 137 Potassium 4.0 Chloride 104 Carbon Dioxide 25 BUN 14 Creatinine 0.78 Glucose 140 H Calcium 8.9 Consult Discharge Plan - Plan Referrals: Tomasa Lozada, FENCE GATE ASSEMBLER [Primary Care Provider] - 06/15/18 4:00 pm (1) Cellulitis Qualifiers: Site of cellulitis: face Qualified Code(s): L03.211 - Cellulitis of face (3) Leukocytosis Qualifiers: Leukocytosis type: unspecified Qualified Code(s): D72.829 - Elevated white blood cell count, unspecified (4) HTN (hypertension) Qualifiers: Hypertension type: essential hypertension Qualified Code(s): I10 - Essential (primary) hypertension (5) Diabetes Qualifiers: Diabetes mellitus type: type 2 Diabetes mellitus senior care insulin use: without lathe scalper 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
[2018-06-08] MEDS: *HR* HYDROcodone/Acet 10/325 mg TABLET PO PRN (20:40)
[2018-06-09] MEDS: Piperacillin/Tazobactam 3.375 GM in 0.9 % Sodium Chloride Mini Bag 100 ML IVPB SCH ×2 (02:35→09:24)
[2018-06-09 04:06] LABS: Basophils # 0.1 K/mcL (0.0-0.2); Basophils % 0.9 %; Eosinophils # 0.9 K/mcL (0.0-0.6); Eosinophils % 8.9 %; Hematocrit 44.1 % (37.5-50.1); Hemoglobin 14.3 g/dL (12.9-16.9); Immature Granulocytes % 0.4 % (0-4); Lymphocytes # 3.3 K/mcL (0.6-4.6); Lymphocytes % 33.7 %; Mean Corpuscular HGB Conc 32.4 g/dL (31.6-35.5); Mean Corpuscular Hemoglobin 30.4 pg (28.0-33.3); Mean Corpuscular Volume 93.8 fL (83.0-100.0); Monocytes # 1.4 K/mcL (0.0-1.3); Monocytes % 14.6 %; Platelet Count 570 K/mcL (140-400); Red Cell Distribution Width 13.6 % (11.5-14.5); Segmented Neutrophils % 41.5 %
[2018-06-09 04:26] LABS: BUN/Creatinine Ratio 16 (6-26); Blood Urea Nitrogen 16 mg/dL (6-20); Calcium 9.1 mg/dL (8.6-10.3); Carbon Dioxide 29 mEq/L (23-29); Chloride 104 mEq/L (98-107); Chol/HDL Ratio 4.9 (0-4.9); Glucose 116 mg/dL (70-105); Osmolality,Calculated 290 (280-300); Potassium 4.2 mEq/L (3.5-5.1); Sodium 139 mEq/L (136-145); eGFR For Non-African Americans > 60 (> 60)
[2018-06-09] MEDS: *HR* Enoxaparin 40 MG/0.4 ML SYRINGE SQ SCH (05:38)
[2018-06-09 07:15] VITALS: BP 132/75
[2018-06-09] MEDS: Insulin LISPRO 300 UNITS/3 ML VIAL SQ SCH (07:46)
[2018-06-09] MEDS: Lisinopril-HCTZ 20-12.5mg TABLET PO SCH (08:41)
[2018-06-09] MEDS: Diclofenac Sodium 75 MG TABLET PO SCH (08:41)
--- NOTE | 2018-06-09 10:16 | Discharge Summary ---
Orders not resulted at time of discharge: Pending orders 06/10/18 04:00 Basic Metabolic Panel AM 0400 Date of Encounter: 06/09/18 Time of Encounter: 10:12 - Discharge Diagnosis (1) Cellulitis Priority: Primary Status: Acute Assessment and Plan: Acute cellulitis of the right cheek. Pt. denies previous sx. States sx began Wednesday afternoon and he was seen at [facility] and [facility] w/o resolve. Radiation of pain and sx to right neck, right jaw, and throat. CT of the soft neck tissue today shows right facial inflammation without abscess. Possible enlarged parathyroid gland versus reactive lymph node. Correlate with serum calcium for any evidence of hyperparathyroidism. Patient's calcium 9.3 on admission. IVPB vancomycin w/Pharmacy dosing and IVPB Zosyn 3.375 gm for infection coverage. Blood cultures x2. Wound culture. Lactic acid ordered. Will adjust abx based on culture results. 0.9 NS IV fluids @ 75 mLs/HR. Will monitor pt. and labs closely for signs of increasing infection or sepsis. Stair -step pain medications for pain management. Pt. does not currently meet sepsis criteria w/WBC of 17.3, 98.0F temp, HR 74, RR 14, BP 132/66, SpO2 95% on RA. Lactic acid ordered. Pt. and f/u labs to be monitored closely for signs of sepsis. Pt. discussed w/Dr. Cummings who agrees w/plan of care. Pt. is high risk for further morbidity and infection based on current sx, failed OP therapy , WBC of 17.3; cellulitis that has spread from cheek to neck/jaw/throat; and risk factors of DM/HTN. Inpatient. 06/07-right orbital cellulitis improving. Decreased swelling overnight. Continue to have clear serous drainage. Blood cultures pending, wound cultures pending. WBC decreasing, 14.9 today. Continue vancomycin and Zosyn, narrow as appropriate based on culture results. Patient remains hemodynamically stable and afebrile. 06/09- Cellulitis resolving, swelling improving. No drainage noted today. Micro resulted with Staph Aureus (s) to Levaquin. D/C with 5-day course of Levaquin. F/u with PCP in 1 -week for evaluation; return to ED if he develops fevers, chills, increased orbital swelling, and/or drainage. Qualifiers: Site of cellulitis: face Qualified Code(s): L03.211 - Cellulitis of face (2) Pain in face Priority: Secondary Status: Acute (3) Leukocytosis Priority: Secondary Status: Resolved Qualifiers: Leukocytosis type: unspecified Qualified Code(s): D72.829 - Elevated white blood cell count, unspecified (4) HTN (hypertension) Priority: Secondary Status: Chronic Qualifiers: Hypertension type: essential hypertension Qualified Code(s): I10 - Essential (primary) hypertension (5) Diabetes Priority: Secondary Status: Chronic Qualifiers: Diabetes mellitus type: type 2 Diabetes mellitus skilled nursing insulin use: without skilled nursing use Diabetes mellitus complication status: with unspecified complications Qualified Code(s): E11.8 - Type 2 diabetes mellitus with unspecified complications (6) DVT prophylaxis Priority: Secondary Status: Acute Hospital course: Mr. Lundberg is a 37 year old male admitted with right orbital/zygomatic cellulitis. Abcess per [facility] imaging; underwent I&D at [facility]. Resolving with IV abx. Culture growing staph aureus (s) to Levaquin. D/C with levaquin x5 days. Take NSAIDS for pain/inflammation. f/u with PCP in 1-week. Discharge discussed with: patient, nurse - Time Spent with Patient Total time spent providing and/or coordinating discharge services: Less than 30 minutes - Discharge Medications Prescriptions: levoFLOXacin [Levaquin] 750 mg PO DAILY 5 Days #5 tablet Home Medications: Diclofenac Sodium [Voltaren] 75 mg PO BID 06/06/18 [History] Lisinopril-HCTZ 20-12.5 [Prinzide 20-12.5] 1 tab PO DAILY 06/06/18 [History] Metformin HCl [Glucophage] 1,000 mg PO BID 06/06/18 [History] levoFLOXacin [Levaquin] 750 mg PO DAILY 5 Days #5 tablet 06/09/18 [Rx] Allergies/Adverse Reactions: 3 Allergy/AdvReac Type Severity Reaction Status Date / Time No Known Allergies Allergy Verified 06/04/18 09:39 Date of admission: 06/06/18 17:10 Primary care physician: Tomasa Lozada CNP Discharging clinician: Shalom Mullen Anticipated date of discharge: 06/09/18 - Constitutional Vitals: Temp Pulse Resp BP Pulse Ox 97.6 F 61 15 132/75 97 06/09/18 07:13 06/09/18 07:13 06/09/18 07:13 06/09/18 07:13 06/09/18 07:13 General appearance: Present: cooperative, mild distress (Pain in right cheek, neck, and throat), A&O X 3, pleasant, obese, answers questions appropriately Exam: PHYSICAL EXAMINATION: GENERAL: The patient is a well-developed, well-nourished male in no apparent distress. He is alert and oriented x3. HEENT: Head is normocephalic and atraumatic. Extraocular muscles are intact. Pupils are equal, round, and reactive to light and accommodation. NECK: Supple. No carotid bruits. No lymphadenopathy or thyromegaly. LUNGS: Clear to auscultation. HEART: Regular rate and rhythm, S1, S2 without murmur. ABDOMEN: Soft, nontender, and nondistended. Positive bowel sounds. No hepatosplenomegaly was noted. EXTREMITIES: Without any cyanosis, clubbing, rash, lesions or edema. NEUROLOGIC: Cranial nerves II through XII are grossly intact. PSYCHIATRIC: Flat affect, but denies suicidal or homicidal ideations. SKIN: Right orbital cellulitis, without fluctuation or induration; swelling and erythema improving. Old incision site s/p I&D with a minimal amount of clear serous drainage, swelling decreasing overnight - Patient Status Disposition: Home, Self-Care Condition: Fair Functional capacity at discharge: independent ambulation Overall status at discharge: patient is progressing back to baseline - Discharge Instructions Instructions: Cellulitis (DC) Follow Up With: Tomasa Lozada CNP [Primary Care Provider] - 06/13/18 2:00 pm - Diet and Activity Diet: advance to your usual diet
[2018-06-09] MEDS ORDERED: Aminoglycoside Consult 1 EACH MC ONE (12:40)
== END 2018-06-09 12:41 | disposition home or self-care (01) | DRG 603 ==
LOC: 3BNU 09:11 → EMEROOARM 09:11 → 3BNU 17:52
PROVIDERS: ADMIT Student in an Organized Health Care Education/Training Program; ATTEND Student in an Organized Health Care Education/Training Program